=== PATIENT | male | born 1950 | race Caucasian/White ===

== ENCOUNTER 2019-08-12 05:40 | Emergency (ER) | payer OTHER ==
[~2019-08-12] VITALS: Ht 177.8 cm; Wt 68.0 kg
[2019-08-12 05:48] VITALS: BP 160/90
[2019-08-12 06:30] VITALS: BP 160/90
== END 2019-08-12 06:30 | disposition home or self-care (01) ==
LOC: MED 05:40
DX: R33.9 Retention of urine, unspecified (principal); Z98.890 Other specified postprocedural states
CPT/HCPCS: 51702; 99284